=== PATIENT | male | born 1955 | race African-American/Black ===

== ENCOUNTER 2018-03-18 01:39 | Emergency (ER) | payer OTHER ==
[2018-03-18] MEDS: HYDROCODONE/APAP (5/325) TAB PO (02:20)
== END 2018-03-18 02:41 | disposition home or self-care (01) ==
LOC: FTE 01:39
DX: K11.20 Sialoadenitis, unspecified (principal); I10 Essential (primary) hypertension; F17.210 Nicotine dependence, cigarettes, uncomplicated
CPT/HCPCS: 99283